=== PATIENT | female | born 1950 | race Caucasian/White ===

== ENCOUNTER 2017-11-04 21:48 | Inpatient (IN) | payer BC, OTHER ==
[~2017-11-04] VITALS: Ht 154.9 cm; Wt 62.0 kg
[~2017-11-04 21:48] MED LIST: AMLODIPINE BES2.5 MG PO; CANDESARTAN-HC1 EAC1 PO; CELEBREX200 MG PO; CELECOXIB200 MG PO; EZ NITE SLEEP25 MG PO; FENOFIBRATE145 M1 PO; HYDROCHLOROTHIA25 MG PO; HYDROCODON-ACE1 EAC7 PO; IRON325 M1 PO; KLOR-CON 1010 ME1 PO; LOVENOX40 MG/0.4 SC; METOPROLOL SUC100 MG PO; MULTIVITAMIN1 EAC2 PO; NAPROSYN500 MG PO; NORVASC5 MG PO; OMEGA-31000 M1 PO; PROBIOTIC1 EAC1 PO; SENNA PLUS TAB1 EACH PO; TYLENOL ARTHRI650 MG PO
[2017-11-05 07:56] VITALS: BP 166/90
[2017-11-05 13:27] LABS: HEMATOCRIT 31.7 % (36.0-46.0); MCH 31.2 PG (29.0-34.0); MCHC 33.1 G/DL (30.0-36.0); MCV 94.1 FL (83-99); RBC DIS.WIDTH-CV 13.7 % (11.8-14.6); RBC DIS.WIDTH-SD 47.6 % (39-53); WHITE BLOOD COUNT 4.7 K/uL (4.1-10.2)
[2017-11-05 14:07] LABS: HEMOGLOBIN 10.5 G/DL (11.9-15.5); PLATELET COUNT 222 K/uL (156-360); RED BLOOD COUNT 3.37 M/uL (3.80-5.20)
[2017-11-05 14:09] LABS: PLAT.SUFFICIENCY ADEQUATE
[2017-11-05 14:45] VITALS: BP 132/71
[2017-11-05 20:27] VITALS: BP 126/75
[2017-11-06 00:14] VITALS: BP 111/69
[2017-11-06 04:13] VITALS: BP 116/70
[2017-11-06 06:03] LABS: HEMATOCRIT 31.3 % (36.0-46.0); HEMOGLOBIN 10.4 G/DL (11.9-15.5); MCV 93.7 FL (83-99)
[2017-11-06 06:25] LABS: CHLORIDE 99 MEQ/L (99-109); CREATININE 0.7 MG/DL (0.6-1.3); GFR ESTIMATE (CALCULATED) > 59 mL/min/; GLUCOSE 116 mg/dL (70-99); POTASSIUM 3.4 MEQ/L (3.7-5.4); UREA NITROGEN (BUN) 14 mg/dL (9-23)
[2017-11-06 06:29] LABS: SODIUM 133 MEQ/L (136-147)
[2017-11-06] MEDS ORDERED: DOCUSATE SODIU100 MG PO (08:20)
[2017-11-06] MEDS ORDERED: OXYCODONE HCL5 MG PO (08:20)
[2017-11-06] MEDS ORDERED: LOVENOX40 MG/0.4 SC (08:20)
[2017-11-06 08:35] VITALS: BP 122/74
[2017-11-06 11:56] VITALS: BP 118/69
[2017-11-06 15:44] VITALS: BP 117/72
[2017-11-06 20:18] VITALS: BP 116/60
[2017-11-07 00:03] VITALS: BP 108/60
[2017-11-07 04:15] VITALS: BP 120/60
[2017-11-07 08:08] VITALS: BP 105/58
[2017-11-07 11:56] VITALS: BP 113/65
== END 2017-11-07 15:35 | disposition home health service (06) | DRG 470 ==
LOC: ENRESERV 21:48 → 2SOUTH 11-05 07:14 → 3WEST 11-05 07:14 → ENRESERV 11-05 08:26 → 2SOUTH 11-05 08:55 → 3WEST 11-05 14:31 → 2SOUTH 11-05 15:27 → 3WEST 11-07 15:35
PROVIDERS: Orthopaedic Surgery
PROC: 0SRB02A Replacement of Left Hip Joint with Metal on Polyethylene Synthetic Substitute, Uncemented, Open Approach (ICD-10-PCS; principal; 2017-11-05)
DX: M16.12 Unilateral primary osteoarthritis, left hip (principal); I10 Essential (primary) hypertension; E78.00 Pure hypercholesterolemia, unspecified; Z96.641 Presence of right artificial hip joint; M87.9 Osteonecrosis, unspecified
CPT/HCPCS: 36415; 73501; 76000; 80048; 85014; 85018; 85027; 86850; 86900; 86901; C1713; J0330; J0690; J1100; J1650; J2250; J2405; J3010; J7050; S0020